=== PATIENT | female | born 1990 | race Caucasian/White ===

== ENCOUNTER 2025-07-02 10:09 | Outpatient (AMB) | payer OTHER, SELFPAY ==
--- NOTE | 2025-07-02 10:14 | A.OFFPC_ITS ---
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 mets); Paternal cousin breast ca dx after age 40 (negative genetic testing). Health Maintenance: PAP overdue; 07/2021 Tdap declined Flu declined Colon due based on family hx (sister age 38). Pt would like to wait on this Specialists: Senior Controller Endo [facility] REAL ESTATE REP [facility] referral placed today New patient here for CPE. Limited MR available. Here w/ End of January eating salad w/ artichoke swallowed and felt like she ate the choke scraped left side of throat passed via stool w/ blood next day swelling left side of neck/throat turned into a cyst applying hot and cold comps felt she agitated it went top [facility] wing US done reports theres a cyst and needs endo referral went to urgent care and had labs done and told normal ([facility]) On a bunch of supplements; changed them; reports improvement in sx also improvement in mood active w/ natropath not active w/ counselor but interested wants to wait as she is going to [place] admits trauma history Lives in [place] for 6 months Rash L arm sometimes itchy; gotten better Applied rubbing etoh and this has dried it out Has not spread; no one else w/ rash. Family History - Mother: Hypertrophic cardiomyopathy - Maternal grandfather: Hypertrophic car diomyopathy - Father: Hypercholesterolemia, anxiety, depression, prostate cancer - Paternal uncle: Previous mouth cancer, recurrent cancer (lung and spine) - Paternal cousin: Recent breast cancer diagnosis Social History - Recently ; experiencing transit ional stress - Splits time between two residences (si x months each at current location and [place]) - Consumes a gluten-free diet due to sen sitivity - Not currently participating in regular talk therapy despite a history of trauma Health Maintenance - Due for Pap smear; last performed 2020 - Receives naturopathic care, recent melanie nge in supplements noted - No current flu shot or tetanus vaccine administered - Dietary sensitivity addressed with glu ten avoidance Review of Systems - General: Reports weight maintenance an d normal activity levels - ENT: Reports previous painful swallowi ng incident - Gastrointestinal: Denies recent episod es of gastrointestinal bleeding - Integumentary: Reports rash developmen t, self-treated Physical Exam General: Well developed, well nourished, in no acute distress. Appears stated age. Head: Normocephalic, atraumatic. Eyes: Pupils are equal, round and reactive to light and accommodation. Conjunctivae are clear. Scleras nonicteric bilat. Vision grossly normal. Ears: TMs clear AU, EACS WNL Nose: Patent, without discharge. Neck: No carotid bruit bilat. Supple, no adenopathy or thyromegaly. Noted left thyroid nodule, nontender, flucuant. Trachea midline. Breast: Edu on SBE Lungs: Clear to auscultation bilaterally. No rales, rhonchi or wheeze noted. Good air flow in all palomino. Heart: Regular rate and rhythm. No murmurs, click, rubs or gallops are noted. EKG completed: show narrow QRS complexes, some uncler P waves Abdomen: Bowel sounds present in all quadrants. The abdomen is soft, nontender, with no masses or organomegaly noted. No hernias are noted. : Deferred. Reviewed ERIKA & recommendations for routine REAL ESTATE REP Pulses: Peripheral pulses are equal and palpable bilaterally. Extremities: No clubbing, cyanosis nor edema is noted. Neurologic: Gait and station normal. Cranial Nerves 2-12 intact. Motor strength grossly symmetrical and intact. No sensory loss. Balance normal. Skin: Noted rash on L upper arm, possibly contact dermatitis. It is dry. Not infected No other rashes, ulcers, or lesions noted. Turgor is good. Skin color is good. Hair and nails are without abnormalities. Psych: Normal eye contact, affect and mood appropriate, and normal interactions. Patient is alert and appropriate to context. Mood improved since stopping certain supplements. Results see below Discussion Notes The possibility of a thyroid cyst, unrelated to choking event, was discussed. Explained how cysts may cause compressive symptoms without direct throat involvement. Emphasized importance of hand sprayer consultation to evaluate if biopsy or other intervention is necessary. Discussed thyroid cancer outcomes and concerns around potential biopsy complications. Reviewed family cancer history, concluding the importance of genetic predisposition. Discussed the management approach to rash, allergy considerations, and gluten avoidance. Emphasized timely endocrinology referral to assess thyroid condition before next relocation. Patient was given time to ask questions. All questions were answered to their satisfaction. Assessment and Plan 1. Anxiety - Non-pharmacological strategies encoura ged. 2. Depression - Consider therapy and lifestyle adjustm ents. - defer counseling referral at this time as she will be in [place] 3. Thyroid Nodule, L - Endocrinology referral for nodule eval uation. 4. SKin rash - Avoid irritants, use topicals as neede d. - resolving 5. abnormal ekg/ fhx wpw refer to cards 6. HM declined flu, tdap. refer for pap declined labs Patient Instructions - Schedule hand sprayer appointment f or thyroid evaluation. - Avoid exposure to suspect allergens ca using rash. - Maintain a gluten-free diet to mitigat e gastrointestinal symptoms. - Contact healthcare provider if rash or thyroid symptoms worsen. - Continue naturopathic supplementation as guided by practitioner. - RTO 1 year CPE sooner as needed. Consent Patient was informed and verbally consented to the use of an ambient scribe for clinic note documentation during this visit. An additional 45 minutes was spent addressing the problem(s) noted at todays visit. This includes time spent before the visit reviewing the chart, time spent during the visit, and time spent after the visit on documentation reviewing laboratory results, diagnostic imaging, medications, performing a medically necessary evaluation, counseling on diagnoses, care coordination, ordering appropriate tests, ordering appropriate medications, review of tests performed by other providers, reporting test results with the patient, communication with other healthcare providers. [facility] Medical History (Updated 07/02/25 @ 11:13 by Batool Cramer [facility]) Allergic Anxiety and depression Scoliosis Sinusitis Surgical History (Updated 07/02/25 @ 10:24 by Dedrick Cook MA) Hx of cholecystectomy Family History (Updated 07/02/25 @ 10:26 by Dedrick Cook MA) Maternal Grandfather HTN (hypertension) High cholesterol Cardiovascular disease Substance abuse Father High cholesterol Paternal Grandfather High cholesterol Skin cancer Mother Cardiovascular disease Maternal Grandmother Bladder cancer Social History (Updated 07/02/25 @ 10:16 by Dedrick Cook MA) Household Members: Spouse Both parents involved: No Caregiver staying overnight: No Housing: House Are you a primary healthcare administrative assistant to a significant other at home: No Do you presently have visiting nurse or other home services: No 75 years or older and lives alone: No Alcohol intake: current Alcohol intake frequency: a few times a month Patient Tobacco Use Status: Never used Tobacco e-Cigarette/Vaping Use: Never Used Second Hand Smoke Exposure: No Current occupational status: employed 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 1. Little interest or pleasure in doing things: several days 2. Feeling down, depressed, or hopeless: several days 3. Trouble falling or staying asleep, or sleeping too much: several days 4. Feeling tired or having little energy: several days 5. Poor appetite or overeating: not at all 6. Feeling bad about yourself - or that you are a failure or have let yourself or your family down: not at all 7. Trouble concentrating on things, such as reading the newspaper or watching television: not at all 8. Moving or speaking so slowly that other people could have noticed. Or the opposite - being so fidgety or restless that you have been moving around a lot more than usual: not at all 9. Thoughts that you would be better off or of hurting yourself in some way: not at all Total score: 4 Depression Screening Interpretation: Negative Depression Screening Done: Yes 59514 - PHQ-9 Billing: Yes Source: Developed by Drs. Prasad Sanders, Juana Cunningham, Daniel So and colleagues, with an educational olga lidia from [employer]. Thrive Questionnaire Date Thrive assessed: 07/02/25 I am a: Patient What is your living situation today?: I have a steady place to live Within the past 12 months, did the food you bought not last and you didn't have the money to get more?: I choose not to answer this question Within the past 12 months, did you worry whether your food would run out before you got money to buy more?: I choose not to answer this question Do you have trouble paying for medicines?: I choose not to answer this question Do you have trouble getting transportation to medical appointments?: No Do you have trouble paying your heating and electricity bill?: No Do you have trouble taking care of your child, family member or friend?: No Do you have trouble with day-to-day activities such as bathing, preparing meals, shopping, managing finances, etc.?: No Are you currently unemployed and looking for a job?: No Are you interested in more education?: No Please select the resources that you would like help with: None Currently or been in a relationship where the following occur: No concerns reported THRIVE Score: 0 AUDIT C Alcohol Use Questionnaire (AUDIT-C) 1. How often do you have a drink containing alcohol?: 2-4 times a month 2. How many drinks containing alcohol do you have on a typical day when you are drinking?: 3 or 4 3. How often do you have six or more drinks on one occasion?: Never Total Score: 3 Score Reviewed/Action Taken: Yes INDIRA-7 AMB Questionnaire INDIRA-7 Date INDIRA - 7 assessed: 07/02/25 Feeling nervous, anxious, or on edge: 1 = Several days Not being able to stop or control worryin = Several days Worrying too much about different things: 1 = Several days Trouble relaxin = Several days Being so restless that it is hard to sit still: 0 = Not at all Becoming easily annoyed or irritable: 1 = Several days Feeling afraid as if something awful might happen: 1 = Several days Total INDIRA-7 score (0-4 normal; 5-9 mild; 10-14 moderate; 15-21 severe): 6 Source: Developed by Drs. Prasad Sanders, Juana Cunninhgam, Daniel So and colleagues, with an educational olga lidia from [employer]. INDIRA-7 Assessment Billing INDIRA-7 Assessment Tool: INDIRA-7 Assessment 06489 Physical exam (Primary Care) Vital Signs: Last Vital Signs Temp 97.2 F 07/02/25 10:20 Pulse 66 07/02/25 10:20 Resp 12 07/02/25 10:20 BP 98/66 07/02/25 10:20 Pulse Ox 100 07/02/25 10:20 Oxygen Delivery Method Room Air 07/02/25 10:20 BMI result Body Mass Index 21.8 Tobacco/Smoking Status: Tobacco use Status Tobacco use date assessed 07/02/25 07/02/25 10:18 Patient Tobacco Use Status Never used Tobacco 07/02/25 10:18 e-Cigarette/Vaping Use Never Used 07/02/25 10:18 PHQ-9: PHQ-9 Score PHQ-9: Total score 4 07/02/25 10:18 Depression Screening Interpretation: Negative Currently or been in a relationship where the following occur: No concerns repo rted Office Procedures EKG 67216-Yxryleymhwqxwwnef, Complete Results Reviewed Results Reviewed: 05/13/2025 normal electrolytes, glucose 81, normal BUN creatinine and GFR, normal calcium, TSH 1.50, normal CBC with diff Thyroid ultrasound right thyroid lobe 5 x 1.5 x 1.5 cm volume 5.6 cc, normal homogeneous echotexture, normal parenchymal vascularity Scattered subcentimeter nodules which do not meet the TI-RADS criteria for imaging follow up Left thyroid lobe 5.9 x 2.5 x 3.2 cm, volume 24.3 cc Lower pole 3.5 x 2.8 x 2.8 cm predominantly cystic, predominantly anechoic, not tolerated than wide, smooth margin, large, tail artifact nodule. Surrounding thyroid demonstrates homogeneous echotexture, normal parenchymal vascularity. Coding Level of Care Code New Pt Level 4 (40921) New Pt Prev Care 18-39yr(62953 Diagnoses Encounter to establish care with new provider Z76.89 Thyroid nodule E04.1 Mild episode of recurrent major depressive disorder F33.0 Major depression episode severity: mild INDIRA (generalized anxiety disorder) F41.1 Family history of colonic polyps Z83.719 Non-celiac gluten sensitivity K90.41 Family history of Ibsrj-Axwoymltp-Juqfg (WPW) syndrome Z82.49 Abnormal EKG R94.31 Tetanus, diphtheria, and acellular pertussis (Tdap) vaccination declined Z28.21 Influenza vaccination declined Z28.21 History of Papanicolaou smear of cervix Z92.89 Encounter for general adult medical examination without abnormal findings Z00.00 CPT Codes EKG - CPT: 85011-Kuyymivebzkglxldc, Complete ([id number]) Additional Codes PHQ-9 - 93396 - PHQ-9 Billing: Yes ([id number]) INDIRA-7 Assessment Billing - INDIRA-7 Assessment Tool: INDIRA-7 Assessment 99052 ([id number]) Assessment & Plan Assessment & Plan (1) Encounter to establish care with new provider: Code(s): Z76.89 - Persons encountering health services in other specified circumstances (2) Thyroid nodule: Onset Date: ~05/2025 Comment: US done at [facility] Thyroid ultrasound right thyroid lobe 5 x 1.5 x 1.5 cm volume 5.6 cc, normal homogeneous echotexture, normal parenchymal vascularity Scattered subcentimeter nodules which do not meet the TI-RADS criteria for imaging follow up Left thyroid lobe 5.9 x 2.5 x 3.2 cm, volume 24.3 cc Lower pole 3.5 x 2.8 x 2.8 cm predominantly cystic, predominantly anechoic, not tolerated than wide, smooth margin, large, tail artifact nodule. Surrounding thyroid demonstrates homogeneous echotexture, normal parenchymal vascularity. Code(s): E04.1 - Nontoxic single thyroid nodule Category: Medical (3) MDD (major depressive disorder), recurrent episode: Code(s): F33.9 - Major depressive disorder, recurrent, unspecified Category: Medical Qualifiers: Major depression episode severity: mild Qualified Code(s): F33.0 - Major depressive disorder, recurrent, mild (4) INDIRA (generalized anxiety disorder): Code(s): F41.1 - Generalized anxiety disorder Category: Medical (5) Family history of colonic polyps: Comment: sister age 38 pt wants to hold off on referral for colon at this time Code(s): Z83.719 - Family history of colon polyps, unspecified Category: Medical (6) Non-celiac gluten sensitivity: Code(s): K90.41 - Non-celiac gluten sensitivity Category: Medical (7) Family history of Eynxj-Cmxhtevlv-Ubxdq (WPW) syndrome: Code(s): Z82.49 - Family history of ischemic heart disease and other diseases of the circulatory system Category: Medical (8) Abnormal EKG: Onset Date: ~07/02/25 Comment: EKG completed: show narrow QRS complexes, some uncler P waves Code(s): R94.31 - Abnormal electrocardiogram [ECG] [EKG] Category: Medical (9) Tetanus, diphtheria, and acellular pertussis (Tdap) vaccination declined: Code(s): Z28.21 - Immunization not carried out because of patient refusal Category: Medical (10) Influenza vaccination declined: Code(s): Z28.21 - Immunization not carried out because of patient refusal Category: Medical (11) History of Papanicolaou smear of cervix: Onset Date: ~2020 Code(s): Z92.89 - Personal history of other medical treatment Category: Medical (12) Encounter for general adult medical examination without abnormal findings: Onset Date: ~07/02/25 Code(s): Z00.00 - Encounter for general adult medical examination without abnormal findings Category: Medical Plan . Orders: Referrals SALES DEVELOPMENT REPRESENTATIVE Referral Z12.4 - Encounter for screening for malignant neoplasm of cervix Endocrinology Referral E04.1 - Nontoxic single thyroid nodule Cardiology Referral R94.31 - Abnormal electrocardiogram [ECG] [EKG], Z82.49 - Family history of ischemic heart disease and other diseases of the circulatory system Patient Instructions: Walk-In Care (Urgent Care): We Make it Easy Walk-in for urgent medical issues such as: ? Seasonal Allergies ? Insect Bites ? Cough ? Diarrhea ? Acute Asthma Attacks ? Back, Knee or Joint Pain ? Ear Infection ? Fever without a Rash ? Headaches ? Nausea ? Purdin Eye, Rash or Skin Irritation ? Sore Throat ? Sports Physicals ? Vomiting Most insurances are accepted. Patients do not need to be part of the [facility] to seek care at the walk-in clinic. Locations [address], [place] Open Monday through Monday 8am-5pm *Hours may vary due to staffing availability. To confirm Walk-In Care hours please [place] [address] [address] ? [phone] [facility] [place] [facility] in [place] provides services to ages 18 and over. Open Monday-Monday: 7 a.m. to 5 p.m. and Monday: 9 a.m. to 3 p.m.* *Hours may vary due to staffing availability. To confirm Walk-In Care hours in [place], please call [phone]. [address] [place] [address] ? [phone] [facility] [facility] [place] provides services to ages 12 and over. Open Monday-Monday: 8 a.m. to 5 p.m. Hours may vary due to staffing availability. To confirm Walk-In Care hours in [place], please call [phone]. LABORATORY SERVICES: [facility] Lab ? Primary Location [address] [place] [address] Monday through Monday 6:00 AM ? 5:00 PM Monday 7:00 AM ? 11:00 AM* [phone] The [facility] Lab is centrally located near the front entrance of the [facility] for easy outpatient access. Convenient parking is provided for outpatients. *Hours may vary due to staffing availability. To confirm Laboratory hours for any location, please call [phone]. Offsite Location For your convenience, we offer offsite laboratory draw stations at the following locations: [address] [place] [address] ? [address], [address] Monday through Monday 7:30 AM ? 1:00 PM* [phone] *Hours may vary due to staffing availability. To confirm Laboratory hours for any location, please call [phone]. [place] ? [address] Monday through Monday 6:00 AM ? 3:30 PM* Monday 6:30 AM ? 3 PM* [phone] *Hours may vary due to staffing availability. To confirm Laboratory hours for any location, please call [phone] [place] [address] Monday through Monday 7:30 AM ? 4:00 PM* [phone] *Hours may vary due to staffing availability. To confirm Laboratory hours for any location, please call [phone] [place] [address] Monday through 9:00 AM ? 4:00 PM* *Hours may vary due to staffing availability. To confirm Laboratory hours for any location, please call [phone]. Appointments are not necessary. Walk-ins are welcome. Like all the departments throughout the [facility], our Lab undergoes frequent reviews to ensure the quality and accuracy of test results, and our staff takes special pride in its status as a nationally accredited facility. Patient Portal: [facility] ONE PATIENT. ONE RECORD. BETTER CARE. [facility] has a fully integrated, cutting- edge mobile electronic health information system that has revolutionized the way we care for our patients and manage our organization. This system improves communication and coordination enabling us to provide safe, higher-quality care, and an overall positive experience for staff and patients. Our first priority, as always, is to deliver the highest quality care possible. The system is running in the background supporting that priority. This portal is for all [facility] services and practices. If you are experiencing any technical difficulties with enrolling or logging into the Patient Portal please complete the [facility] Patient Portal Technical Support Form. [facility] now offers a new secure on-line interactive tool for patients to review their health information ? ?Patient Portal. This interactive web portal will enable patients and their families to take an active role in their care by providing easy, secure access to their health information via the internet. The Patient Portal provides patients with instant access to their health information, including laboratory results, medications, allergies, demographic information, visit history, and more. In addition to managing their own care, parents and health care proxies with authorized consent will appreciate the ability to access the records of those individuals for whom they provide care. Please note: if you wish to gain access (Proxy) to another patient?s portal, you will be required to come to the Medical Records Department in person at [facility]. Both the patient giving proxy access and the proxy will need to provide photo identification and complete the appropriate authorization. The Patient Portal also allows track their appointments online. The [facility] Patient Portal also saves patients time by allowing them to submit updates to their demographic and contact information prior to their visits. Portal email notifications will also alert patients to any new activity on their portal, such as test results and new appointments. In order to initially enroll in the [facility] Patient Portal, you will need to enter some required information including the following: * your [facility] Medical Record number * your personal home email address * name * date of Please note: In order to enroll in the [facility] Patient Portal, we need to have your email address on file in your electronic medical record. ?The email address needs to be specific for one person (yourself) in order for your Portal enrollment to be successful. ?You can update your email address in person with our Registration staff when you are registering for a hospital visit. ?Otherwise, you will need to come to the Health Information Management (Medical Records) Department at [facility]. ?We are open from Monday ? Monday from 7:30 a.m. ? 4:30 p.m. ?You will be required to present a photo id. Once you have successfully enrolled in the Patient Portal, you will receive a one-time user id and password for the Portal, sent to your email address. ?This will allow you to log into the Patient Portal within 99 hrs and reset your own logon id and password, and define personal security questions. ?Once your permanent login and password have been set, you can log into the [facility] Patient Portal at any time via the blue button above or from the Portal Logon button on any page of the [facility] website. [facility] and [facility] encourage all of our patients to enroll in Patient Portal as it presents a valuable opportunity for patients and their families to actively participate in their care and stay healthy Welcome to [facility]. ?We look forward to working with you. National Suicide and Crisis Lifeline: Available 24 hours a day, 7 days a week, 365 days a year Dial 988 with any telephone to speak to someone immediately [address] [address] , Walk ins [facility] (Mental / Behavioral health therapist: [address] [place] [address] [facility]: [address] [place] [address] Open from 10am - 12pm (walk ins welcome) [facility] Crisis Services: [address] [place] [address] Walk in hours from 10am - 12pm Behavioral health Network: [address] [place] [address] [phone] [address], [place] [id number] Monday through Monday 8am - 8pm Monday and Monday 9am - 5pm Crisis Hotlines Suicide prevention, domestic violence, and other crisis hotlines for youth, young adults, and their friends and families. [place] Runaway Safeline: The [employer] Runaway Safeline helps youth who have run away, are thinking about running away, or who already ran away but are ready to come home. Parents and guardians can also contact the hotline if they are worried about their child running away or if their child has already left home. The hotline is available 24 hours a day, seven days a week. Youth, parents, and guardians can also use the online chat feature on the [employer]'s website to ask for help and get support, [place] [address]. [place] [facility] National Suicide Prevention Lifeline: The National Suicide Prevention Lifeline is a network of local crisis centers that are available 24/04 to provide support for youth and adults who are in any kind of emotional crisis. In addition to the main hotline number listed above, there are several other numbers to call depending on your needs: Bengali Language: Deaf and Hard of Hearin1-440.259.7793 Veterans: Disaster Distress: Anyone can also use their online chat feature on their website. National Suicide Prevention Lifeline [facility] Helpline: The [facility] Helpline is available to anyone in [place] who is need of emotional support. Anyone can call or text the helpline to receive help from specially trained volunteers. [place] high school and college students can also get online support through the IMH[employer]_ program. For high school students, volunteers ages 15-18 are available Monday- from 6-9PM. For college students, [employer]_ is available Monday-Monday from 5-9PM. The [employer] - The [employer] Project is a 24/04 crisis intervention and suicide prevention hotline for LGBTQ youth. Youth can also text Jefferson to for support, or use the online chat feature on the [employer]'s website. [employer] is available Monday-Monday between 3-10PM. [employer] is available seven days a week between 3-10PM. SafeLink: SafeLink is for anyone who is being affected by domestic violence or dating violence. Volunteers at [employer] speak Lebanese and Bengali, and [employer] also has a service that can provide translation in more than 130 languages. TTY: Health screenings for women You should visit your health care provider from time to time, even if you are healthy. The purpose of these visits is to: Screen for medical issues Assess your risk for future medical problems Encourage a healthy lifestyle Update vaccinations and other preventive care services Help you get to know your provider in case of an illness Information Even if you feel fine, you should still see your provider for regular checkups. These visits can help you avoid problems in the future. For example, the only way to find out if you have high blood pressure is to have it checked regularly. High blood sugar and high cholesterol levels also may not have any symptoms in the early stages. A simple blood test can check for these conditions. There are specific times when you should see your provider or receive specific health screenings. The [place] Preventive Services Task Force publishes a list of recommended screenings. Below are screening guidelines for women ages 18 to 39. BLOOD PRESSURE SCREENING Your blood pressure should be checked at least once every 3 to 5 years if: Your blood pressure is in the normal range (top number less than 120 mm Hg and bottom number less than 80 mm Hg) You don't have risk factors for high blood pressure Ask your provider if you need your blood pressure checked more often if: The top number is 120 to 129 mm Hg or the bottom number is 70 to 79 mm Hg You have diabetes, heart disease, kidney problems, are overweight, or have certain other health conditions You have a first-degree relative with high blood pressure You are Black You had high blood pressure during a If the top number is 130 mm Hg or greater or the bottom number is 80 mm Hg or greater, this is considered stage 1 hypertension. Schedule an appointment with your provider to learn how you can reduce your blood pressure. Watch for blood pressure screenings in your area. Ask your provider if you can stop in to have your blood pressure checked. BREAST CANCER SCREENING Experts do not agree about the benefits of breast self-exams in finding breast cancer or saving lives. Talk to your provider about what is best for you. A screening mammogram is not recommended for most women under age 40. Your provider may discuss and recommend mammograms, MRI scans, or ultrasounds if you have an increased risk for breast cancer, such as: A mother or sister who had breast cancer at a young age (most often starting screening earlier than the age the close relative was diagnosed) You carry a high-risk genetic marker CERVICAL CANCER SCREENING Cervical cancer screening should start at age 21 years unless your provider advises otherwise. After the first test: Women ages 21 through 29 should have a Pap test every 3 years. Exoprts do not agree on whether HPV testing is recommended for this age group. Women ages 30 through 65 should be screened with either a Pap test every 3 years or the HPV test every 5 years or both tests every 5 years (called cotesting ). Women who have been treated for precancer (cervical dysplasia) should continue to have Pap tests for 20 years after treatment or until age 65, whichever is longer. If you have had your uterus and cervix removed (total hysterectomy), and you have not been diagnosed with cervical cancer or precancer (high grade cervical neoplasia), you do not need cervical cancer screening. CHOLESTEROL SCREENING Cholesterol screening should begin at: Age 45 for women with no known risk factors for coronary heart disease Age 20 for women with known risk factors for coronary heart disease Repeat cholesterol screening should take place: Every 5 years for women with normal cholesterol levels More often if changes occur in lifestyle (including weight gain and diet) More often if you have diabetes, heart disease, kidney problems, or certain other conditions DIABETES SCREENING You should be screened for diabetes starting at age 35 and then repeated every 3 years if you have no risk factors for diabetes. Screening may need to start earlier and be repeated more often if you have other risk factors for diabetes, such as: You have a first degree relative with diabetes. You are overweight or have obesity. You have high blood pressure, prediabetes, or a history of heart disease. Screening for diabetes should be done if you are planning to become and you are overweight and have other risk factors such as high blood pressure. DENTAL EXAM Go to the dentist once or twice every year for an exam and cleaning. Your dentist will evaluate if you need more frequent visits. EYE EXAM Have an eye exam every 5 to 10 years before age 40. If you have vision problems, have an eye exam every 2 years or more often if recommended by your provider. You should have an eye exam that includes an examination of your retina (back of your eye) at least every year if you have diabetes. IMMUNIZATIONS Commonly needed vaccines include: Flu shot: get one every year. COVID-19 vaccine: ask your provider what is best for you. Tetanus-diphtheria and acellular pertussis (Tdap) vaccine: have one at or after age 19 as one of your tetanus-diphtheria vaccines if you did not receive it as an adolescent. Tetanus-diphtheria: have a booster (or Tdap) every 10 years. Varicella vaccine: receive 2 doses if you never had chickenpox or the varicella vaccine. Hepatitis B vaccine: receive 2, 3, or 4 doses, depending on your exact circumstances. Measles, mumps, and rubella (MMR) vaccine: receive 1 to 2 doses if you are not already immune to MMR. Your provider can tell you if you are immune. Ask your provider about the human papillomavirus (HPV) vaccine if: You have not received the HPV vaccine in the past You have not completed the full vaccine series (you should catch up on this shot) Ask your provider if you should receive other immunizations if you have certain health problems that increase your risk for some diseases such as pneumonia. INFECTIOUS DISEASE SCREENING Women who are sexually active should be screened for chlamydia and gonorrhea up until age 25. Women 25 years and older should be screened for chlamydia and gonorrhea if at high risk. Screening for hepatitis C: All adults ages 18 to 79 should get a one-time test for hepatitis C. people should be screened at every . Screening for human immunodeficiency virus (HIV): All people ages 15 to 65 should get a one-time test for HIV. Depending on your lifestyle and medical history, you may also need to be screened for infections such as syphilis and HIV, as well as other infections. PHYSICAL EXAM All adults should visit their provider from time to time, even if they are healthy. The purpose of these visits is to: Screen for disease Assess your risk of future medical problems Encourage a healthy lifestyle Update your vaccinations and other preventive care services Maintain a relationship with a provider in case of an illness Your height, weight, and BMI should be checked at every exam. During your exam, your provider may ask you about: Depression and anxiety Diet and exercise Alcohol and tobacco use Safety issues, such as using seat belts, smoke detectors, and intimate partner violence Your medicines and risk for interactions SKIN SELF-EXAM Your provider may check your skin for signs of skin cancer, especially if you're at high risk, such as if you: Have had skin cancer before Have close relatives with skin cancer Have a weakened immune system OTHER SCREENING Talk with your provider about colon cancer screening if you have a strong family history of colon cancer or polyps, or if you have had inflammatory bowel disease or polyps yourself. Routine bone density screening of women under 40 is not recommended.
[2025-07-02 10:20] VITALS: BP 98/66; PULSE 66; RESP 12; TEMP 36.2; O2SAT 100; BMI 21.8
--- OUTSIDE RECORDS SUMMARY | 2025-07-02 11:24 | XMS_ITS ---
Author Name [facility] Organization Unknown Care Team Organization Name Specialty Phone Email Start Date End Da te [facility] 02/26/2025 [facility] 01/29/2025
--- OUTSIDE RECORDS SUMMARY | 2025-07-02 11:24 | XMS_ITS | Clinical Summary ---
Author Organization [facility] Address [address] [place] [address] Care Team Providers Care Valve Pipe Irrigator Name Role Phone Suze Romano Primary Care Provider [phone] Allergies No known active allergies Medications ibuprofen (ADVIL,MOTRIN) 600 MG tablet Take 1 tablet (600 mg total) by mouth 3 (three) times a day. 30 tablet 11/26/2017 Active acetaminophen (TYLENOL) 325 mg tablet Take 2 tablets (650 mg total) by mouth every 6 (six) hours. 30 tablet 11/26/2017 Active predniSONE (DELTASONE) 5 MG tablet Take 40 mg by mouth once daily. Active Social History Tobacco Use Types Packs/Day Years Used Date Smoking Tobacco: Former Smokeless Tobacco: Never Alcohol Use Standard Drinks/Week Comments No 0 (1 standard drink = 0.6 oz pur e alcohol) Comments Unknown Sex and Gender Information Value Date Recorded Sex Assigned at Not on file Legal Sex Female 8:20 PM EST Gender Identity Not on file Sexual Orientation Not on file Last Filed Vital Signs Vital Sign Reading Time Taken Comments Blood Pressure 123/74 12/01/2017 5:48 AM EST Pulse 84 12/01/2017 5:48 AM EST Temperature 37.1 C (98.7 F) 12/01/2017 5:48 AM EST Respiratory Rate 20 12/01/2017 5:48 AM EST Oxygen Saturation 99% 12/01/2017 5:48 AM EST Inhaled Oxygen Concentration - - Weight - - Height - - Body Mass Index - - Plan of Treatment Not on file Insurance [address] [place] [address] [employer] Care Teams Valve Pipe Irrigator Relationship Specialty Start Date End Date Suze Romano DO [address] [facility] [address] [place] [address] PCP - General Internal Medicine 11/26/17
== END 2025-07-02 11:12 | disposition home or self-care (01) ==
LOC: HO.HMCFM 10:10
PROVIDERS: PCP Nurse Practitioner Family; Visit Provider Nurse Practitioner Family
DX: Z76.89 Persons encountering health services in other specified circumstances (principal); E04.1 Nontoxic single thyroid nodule; F33.0 Major depressive disorder, recurrent, mild; F41.1 Generalized anxiety disorder; Z83.719 Family history of colon polyps, unspecified; K90.41 Non-celiac gluten sensitivity; Z82.49 Family history of ischemic heart disease and other diseases of the circulatory system; R94.31 Abnormal electrocardiogram [ECG] [EKG]; Z28.21 Immunization not carried out because of patient refusal; Z92.89 Personal history of other medical treatment; Z00.00 Encounter for general adult medical examination without abnormal findings

== ENCOUNTER → 2025-07-02 10:09 | Outpatient (BNVA) | payer OTHER, SELFPAY | PROVIDERS: PCP Nurse Practitioner Family; Visit Provider Nurse Practitioner Family | DX: E04.1 Nontoxic single thyroid nodule (principal); R21 Rash and other nonspecific skin eruption; F33.0 Major depressive disorder, recurrent, mild; F41.1 Generalized anxiety disorder; K90.41 Non-celiac gluten sensitivity; R94.31 Abnormal electrocardiogram [ECG] [EKG]; Z28.21 Immunization not carried out because of patient refusal; Z82.49 Family history of ischemic heart disease and other diseases of the circulatory system; Z83.719 Family history of colon polyps, unspecified | CPT/HCPCS: 93005; 96127; 99202; 99385 ==